=== PATIENT | female | born 1965 | race Caucasian/White ===

== ENCOUNTER 2019-10-21 07:57 | Day surgery (SDC) | payer BC ==
[~2019-10-21] VITALS: Ht 172.7 cm; Wt 63.2 kg
[2019-10-21 08:09] VITALS: BP 136/73
[2019-10-21] MEDS ORDERED: fentaNYL/PF 50MCG/1 ML 2ML syringe ONE ×2 (08:11→08:14)
[2019-10-21] MEDS ORDERED: MIDAZolam 5mg/5ml vial ONE (08:12)
[2019-10-21] MEDS ORDERED: LIDOcaine Viscous 15ml cup ONE (08:12)
[2019-10-21] MEDS ORDERED: NAPR-56 PO (08:16)
[2019-10-21] MEDS ORDERED: SUMA100T16 PO (08:16)
[2019-10-21] MEDS ORDERED: PROM25TA14 PO (08:17)
[2019-10-21] MEDS ORDERED: TOPI25TA49 PO (08:18)
[2019-10-21] MEDS ORDERED: FLUC100T PO (08:19)
[2019-10-21] MEDS ORDERED: VALA10002 PO (08:20)
[2019-10-21] MEDS ORDERED: MELO-100 PO (08:21)
[2019-10-21] MEDS ORDERED: ONDA8TAB6 PO (08:22)
[2019-10-21] MEDS ORDERED: PROC-8 PO (08:22)
[2019-10-21] MEDS ORDERED: ALPR1TAB2 PO (08:23)
[2019-10-21] MEDS ORDERED: DEXA4TAB68 PO (08:25)
[2019-10-21] MEDS ORDERED: AMOX-422 PO (08:26)
[2019-10-21] MEDS ORDERED: CALC-965 PO (08:28)
[2019-10-21] MEDS ORDERED: PSYL660P17 PO (08:29)
[2019-10-21] MEDS ORDERED: POLY17PO10 PO (08:30)
[2019-10-21] MEDS ORDERED: ACET-2319 PO (08:31)
[2019-10-21] MEDS ORDERED: DOCU100C41 PO (08:31)
[2019-10-21] MEDS ORDERED: MULT-955 PO (08:32)
[2019-10-21] MEDS ORDERED: LORA10TA61 PO (08:33)
[2019-10-21] MEDS ORDERED: BIOT5TAB PO (08:33)
[2019-10-21] MEDS ORDERED: MAGN400O6 PO (08:34)
[2019-10-21] MEDS ORDERED: LOPE-144 PO (08:35)
[2019-10-21] MEDS ORDERED: MOUTHWASH PO (08:37)
[2019-10-21] MEDS ORDERED: LIDO30CR23 TOP (08:38)
[2019-10-21 09:47] VITALS: BP 124/58
[2019-10-21 09:57] VITALS: BP 130/81
[2019-10-21 10:07] VITALS: BP 125/75
[2019-10-21 10:17] VITALS: BP 132/86
== END 2019-10-21 10:30 | disposition home or self-care (01) ==
LOC: GI LAB 07:57
PROVIDERS: ATTEND Internal Medicine Gastroenterology
DX: R10.13 Epigastric pain (principal); K29.50 Unspecified chronic gastritis without bleeding; K31.89 Other diseases of stomach and duodenum; K44.9 Diaphragmatic hernia without obstruction or gangrene; K22.2 Esophageal obstruction; K25.9 Gastric ulcer, unspecified as acute or chronic, without hemorrhage or perforation; K26.9 Duodenal ulcer, unspecified as acute or chronic, without hemorrhage or perforation
CPT/HCPCS: 43239; 99152; J2250; J3010; J7040; A4620

== ENCOUNTER 2019-12-09 13:55 | Emergency (ER) | payer BC ==
[~2019-12-09] VITALS: Ht 172.7 cm; Wt 64.1 kg
[~2019-12-09 13:55] MED LIST: ACET-2319 PO; ALPR1TAB2 PO; AMOX-422 PO; BIOT5TAB PO; CALC-965 PO; DEXA4TAB68 PO; DOCU100C41 PO; FLUC100T PO; LIDO30CR23 TOP; LOPE-144 PO; LORA10TA61 PO; MAGN400O6 PO; MELO-100 PO; MOUTHWASH PO; MULT-955 PO; NAPR-56 PO; ONDA8TAB6 PO; POLY17PO10 PO; PROC-8 PO; PROM25TA14 PO; PSYL660P17 PO; SUMA100T16 PO; TOPI25TA49 PO; VALA10002 PO
[2019-12-09 14:17] VITALS: BP 114/67
== END 2019-12-09 14:59 | disposition home or self-care (01) ==
LOC: ER 13:56
DX: S60.221A Contusion of right hand, initial encounter (principal); Z85.3 Personal history of malignant neoplasm of breast; Z88.8 Allergy status to other drugs, medicaments and biological substances; Z88.5 Allergy status to narcotic agent; Z79.899 Other long term (current) drug therapy; W22.8XXA Striking against or struck by other objects, initial encounter; Y93.89 Activity, other specified; Y92.89 Other specified places as the place of occurrence of the external cause; Y99.0 Civilian activity done for income or pay
CPT/HCPCS: 99281